=== PATIENT | male | born 1995 | race African-American/Black ===

== ENCOUNTER 2018-01-05 00:55 | Emergency (ER) | payer OTHER ==
[~2018-01-05] VITALS: Ht 180.3 cm; Wt 97.5 kg
[2018-01-05 01:07] VITALS: BP 153/87
--- NOTE | 2018-01-05 01:26 | ED.ADGEN ---
Past History Past Medical History: No Pertinent History Past Surgical History: No Surgical History Alcohol Use: Occasionally Drug Use: None Adult General Chief Complaint Chief Complaint ".. I ve had a cough...".." I a cook at the base.. 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 Pt. coughing up green sputum and reports generalize malaise, subjective fever and chills. No travel or specific ill contacts. Pt. does smoke. No hx of immunosuppression. Pt up to date with vaccinations. Pt. normally healthy. Review of Systems Review of Systems Constitutional: Objective complaints of fever or chills [] Eyes: Denies change in visual acuity, redness, or eye pain [] HENT: Complaints of of nasal congestion and sore throat [] Respiratory: Complaints of cough and wheezing Cardiovascular: No additional information not addressed in HPI [] GI: Denies abdominal pain, nausea, vomiting, bloody stools or diarrhea [] : Denies dysuria or hematuria [] Musculoskeletal: Denies back pain or joint pain [] Integument: Denies rash or skin lesions [] Neurologic: Denies headache, focal weakness or sensory changes [] Endocrine: Denies polyuria or polydipsia [] All other systems were reviewed and found to be within normal limits, except as documented in this note. Family History Family History Noncontributory Current Medications Current Medications Current Medications Medications (Trade) Dose Ordered Sig/Sergio Start Time Stop Time Status Last Admin Dose Admin Albuterol Sulfate (Ventolin Hfa Inhaler) 2 puff 1X ONCE 01/05/18 02:15 01/05/18 02:16 DC 01/05/18 02:01 2 PUFF Azithromycin (Zithromax) 500 mg 1X ONCE 01/05/18 02:15 01/05/18 02:16 DC 01/05/18 02:01 500 MG Prednisone (Prednisone) 50 mg 1X ONCE 01/05/18 02:15 01/05/18 02:16 DC 01/05/18 02:01 50 MG See nursing for home meds Allergies Allergies Allergies Coded Allergies Type Severity Reaction Last Updated Verified No Known Drug Allergies 01/05/18 No Physical Exam Physical Exam Constitutional: Well developed, well nourished, moderately acute distress, non- toxic appearance. [] HENT: Normocephalic, atraumatic, bilateral external ears normal, oropharynx moist, injected pharynx, no oral exudates, nose swollen turbinates and rhinorrhea. Eyes: PERRLA, EOMI, conjunctiva normal, no discharge. [] Neck: Normal range of motion, no tenderness, supple, no stridor. [] Cardiovascular:Heart rate regular rhythm, no murmur [] Lungs & Thorax: Bilateral breath sounds equal apex with scattered wheezes on auscultation [] Abdomen: Bowel sounds normal, soft, no tenderness, no masses, no pulsatile masses. [] Skin: Warm, dry, no erythema, no rash. [] Tattoos Back: No tenderness, no CVA tenderness. [] Extremities: No tenderness, no cyanosis, no clubbing, ROM intact, no edema. [] Neurologic: Alert and oriented X 3, normal motor function, normal sensory function, no focal deficits noted. [] Psychologic: Affect normal, judgement normal, mood normal. [] Current Patient Data Vital Signs Vital Signs Date Time Temp Pulse Resp B/P (MAP) Pulse Ox O2 Delivery O2 Flow Rate FiO2 01/05/18 01:07 98.4 97 16 98 Room Air EKG EKG [] Radiology/Procedures Radiology/Procedures [] Course & Med Decision Making Course & Med Decision Making Pertinent Labs and Imaging studies reviewed. (See chart for details). Patient take Tylenol and ibuprofen as needed for discomfort. Patient to try over -the-counter Benadryl 50 mg up 4 times a day for coughing and drainage. Patient taking Zithromax 250 and prednisone 50 mg day for 5 days. Use MDI 2 puffs 4 times a day. Patient follow-up [place]. Patient return if any concerns. 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 Encouraged patient to stop smoking. Worked to use up to 3 days if needed. No work if running a fever. [] Final Impression Final Impression 1. Upper respiratory infection 2. Bronchitis 3. Tobacco use[] Dragon Disclaimer Dragon Disclaimer This electronic medical record was generated, in whole or in part, using a voice recognition dictation system. UZAIR MCKEON MD Jan 05, 2018 01:26
[2018-01-05] MEDS ORDERED: AZIT250T PO (01:53)
[2018-01-05] MEDS ORDERED: PRED50TA PO (01:53)
[2018-01-05] MEDS: AZITHROMYCIN 250 MG TABLET. PO ONE (02:01)
[2018-01-05] MEDS: ALBUTEROL SULFATE 8GM INHALER. INH ONE (02:01)
[2018-01-05] MEDS: predniSONE 10 MG TABLET PO ONE (02:01)
== END 2018-01-05 02:05 | disposition home or self-care (01) ==
LOC: ER 00:55
DX: J06.9 Acute upper respiratory infection, unspecified (principal); J40 Bronchitis, not specified as acute or chronic; Z72.0 Tobacco use
CPT/HCPCS: 94640; 99283; J0456; J7512; J7613

== ENCOUNTER 2018-08-18 16:14 | Emergency (ER) | payer OTHER ==
[~2018-08-18] VITALS: Ht 180.3 cm; Wt 97.5 kg
[~2018-08-18 16:14] MED LIST: AZIT250T PO; PRED50TA PO
--- NOTE | 2018-08-18 16:46 | PHYS DOC ---
Past History Past Medical History: No Pertinent History Past Surgical History: No Surgical History Alcohol Use: Occasionally Drug Use: None Adult General Chief Complaint Chief Complaint: KNEE INJURY HPI HPI 23-year-old male presents with right knee pain. The patient has had issues with his right knee since a the training in the . He recently had meniscal tear repair surgery at the end of June. He has continued to do physical therapy. He has been cleared to walk without crutches. Of the last couple of days the pain and swelling seems to have increased, especially therapy. He presents today because he has been taking NSAIDs as directed and it is not helping with the pain. He denies fever or chills. He has had no new trauma or falls. Review of Systems Review of Systems Constitutional: Denies fever or chills [] Eyes: Denies change in visual acuity, redness, or eye pain [] HENT: Denies nasal congestion or sore throat [] Respiratory: Denies cough or shortness of breath [] Cardiovascular: No additional information not addressed in HPI [] GI: Denies abdominal pain, nausea, vomiting, bloody stools or diarrhea [] : Denies dysuria or hematuria [] Musculoskeletal: Right knee pain[] Integument: Denies rash or skin lesions [] Neurologic: Denies headache, focal weakness or sensory changes [] Endocrine: Denies polyuria or polydipsia [] All other systems were reviewed and found to be within normal limits, except as documented in this note. Allergies Allergies Allergies Coded Allergies Type Severity Reaction Last Updated Verified No Known Drug Allergies 01/05/18 No Physical Exam Physical Exam Constitutional: Well developed, well nourished, no acute distress, non-toxic appearance. [] HENT: Normocephalic, atraumatic, bilateral external ears normal, oropharynx moist, no oral exudates, nose normal. [] Eyes: PERRLA, EOMI, conjunctiva normal, no discharge. [] Neck: Normal range of motion, no tenderness, supple, no stridor. [] Cardiovascular:Heart rate regular rhythm, no murmur [] Lungs & Thorax: Bilateral breath sounds clear to auscultation [] Abdomen: Bowel sounds normal, soft, no tenderness, no masses, no pulsatile masses. [] Skin: Warm, dry, no erythema, no rash. [] Back: No tenderness, no CVA tenderness. [] Extremities: Tenderness along the medial joint line of the right knee, moderate swelling, no ecchymosis, solid end feel of all ligaments.[] Neurologic: Alert and oriented X 3, normal motor function, normal sensory function, no focal deficits noted. [] Psychologic: Affect normal, judgement normal, mood normal. [] Current Patient Data Vital Signs Vital Signs Date Time Temp Pulse Resp B/P (MAP) Pulse Ox O2 Delivery O2 Flow Rate FiO2 08/18/18 16:24 98.9 89 20 97 Room Air EKG EKG [] Radiology/Procedures Radiology/Procedures [] Impressions: Examination: KNEE RIGHT 3V History: Pain Comparison/Correlation: None Findings: Total 3 images of the right knee were obtained. Joint spaces are normal. No acute fracture or bony destruction. Small joint effusion. No degenerative change. Impression: Small knee joint effusion. Electronically signed by: Dinesh Holt MD (08/18/2018 5:12 PM) [facility] DICTATED AND SIGNED BY: DINESH HOLT MD DATE: 08/18/18 530 CC: KRISH PARSONS DO; THOMAS DAVDI PA-C ~ Course & Med Decision Making Course & Med Decision Making Pertinent Labs and Imaging studies reviewed. (See chart for details) The patient's x-ray is unremarkable except for small joint effusion. It's possible the patient re-tweaked the meniscus. It could also just be reactive swelling due to his physical therapy exercises. I will discharge the patient wi th tramadol and advised that he use compression. He will follow-up with his physicians. He is stable for discharge at this time. [] Dragon Disclaimer Dragon Disclaimer This electronic medical record was generated, in whole or in part, using a voice recognition dictation system. Departure Departure: Impression: Primary Impression: Right knee pain Additional Impression: Joint effusion of knee Disposition: 01 HOME, SELF-CARE Condition: STABLE Referrals: THOMAS DAVID PA-C (PCP) Patient Instructions: Knee Pain, [id number] Scripts Tramadol Hcl (TRAMADOL HCL) 50 Mg Tablet 50 MG PO PRN Q6HRS PRN for PAIN, #14 TAB Prov: KRISH PARSONS DO 08/18/18 Problem Qualifiers Primary Impression: Right knee pain Chronicity: acute Qualified Codes: M25.561 - Pain in right knee Additional Impression: Joint effusion of knee Laterality: right Qualified Codes: M25.461 - Effusion, right knee KRISH PARSONS DO Aug 18, 2018 16:46
--- NOTE | 2018-08-18 17:15 | RAD ---
Examination: KNEE RIGHT 3V History: Pain Comparison/Correlation: None Findings: Total 3 images of the right knee were obtained. Joint spaces are normal. No acute fracture or bony destruction. Small joint effusion. No degenerative change. Impression: Small knee joint effusion. Electronically signed by: Carlton Marroquin MD (08/18/2018 5:12 PM) [facility]
[2018-08-18] MEDS ORDERED: TRAM50TA PO (17:23)
[2018-08-18 17:33] VITALS: BP 134/56
== END 2018-08-18 17:33 | disposition home or self-care (01) ==
LOC: ER 16:14
DX: M25.461 Effusion, right knee (principal); M25.561 Pain in right knee
CPT/HCPCS: 73562; 99284

== ENCOUNTER 2019-05-14 23:58 | Emergency (ER) | payer OTHER ==
[~2019-05-14] VITALS: Ht 180.3 cm; Wt 98.0 kg
[~2019-05-14 23:58] MED LIST changes: +TRAM50TA PO
--- NOTE | 2019-05-15 00:05 | PHYS DOC ---
Past History Past Medical History: No Pertinent History, Migraines Past Surgical History: No Surgical History Past Surgical History Knee Rt Alcohol Use: Occasionally Drug Use: None Adult General Chief Complaint Chief Complaint: "... I ve had a head ache... that been constant the last two days.. my eyes rivera.. and ache.. 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 Pt. presents with above hx and complaints of headache x 2 days. No overseas assignment for 3 years-last time was [place]. No recent travel out of state travel. No history of trauma. Up-to-date with vaccinations including flu vaccination. Patient does have a history of migraine headaches as a teenager. Patient states in the past taking Tylenol relieved his headaches. Pt. follows with Kortney Sheikh for primary at [place]. No history of trauma. Review of Systems Review of Systems Constitutional: Denies fever or chills [] Eyes: Complains of burning eyes HENT: Complains of nasal congestion congestion and clear rhinorrhea] Respiratory: Denies cough or shortness of breath [] Cardiovascular: No additional information not addressed in HPI [] GI: Denies abdominal pain, nausea, vomiting, bloody stools or diarrhea [] : Denies dysuria or hematuria [] Musculoskeletal: Complaints of generalized myalgia and arthralgia and malaise.] Integument: Denies rash or skin lesions [] Neurologic: Complaints of generalized headache,. Denies focal weakness or sensory changes [] Endocrine: Denies polyuria or polydipsia [] All other systems were reviewed and found to be within normal limits, except as documented in this note. Family History Family History Noncontributory Current Medications Current Medications See nursing for home meds Allergies Allergies Allergies Coded Allergies Type Severity Reaction Last Updated Verified No Known Drug Allergies 01/05/18 No Physical Exam Physical Exam Constitutional: Well developed, well nourished, mild distress, non-toxic appearance. [] HENT: Normocephalic, atraumatic, bilateral external ears normal, oropharynx moist, no oral exudates, nose mild turbinate edema and clear rhinorrhea. Eyes: PERRLA, EOMI, conjunctiva normal, no discharge. [] Does have some photophobia Neck: Normal range of motion, no tenderness, supple, no stridor. [] Cardiovascular:Heart rate regular rhythm, no murmur [] Lungs & Thorax: Bilateral breath sounds clear to auscultation [] Abdomen: Bowel sounds normal, soft, no tenderness, no masses, no pulsatile masses. [] Skin: Warm, dry, no erythema, no rash. [] Back: No tenderness, no CVA tenderness. [] Extremities: No tenderness, no cyanosis, no clubbing, ROM intact, no edema. [] Right knee scar. Neurologic: Alert and oriented X 3, normal motor function, normal sensory function, no focal deficits noted. []DTRs +2 patella and brachial. It is ambulatory without problems. No drift. Cook [place] equal. Right-hand dominant. Psychologic: Affect anxious, judgement normal, mood normal. [] EKG EKG [] Radiology/Procedures Radiology/[place]ced[place] [][place] [address] IMAGING REPORT Signed PATIENT: TANO LEWISACCOUNT: [id number] : 1995 LOCATION: ER AGE: 24 SEX: M EXAM STATUS: REG ER ORD. PHYSICIAN: UZAIR MCKEON MD REASON: Head ache x 2 days - no relief with over counter meds PROCEDURE: CT HEAD WO CONTRAST CT head without contrast: Reason for examination: Headache for 2 days. No relief with [id number] medications. Axial images were obtained through the brain. No contrast was administered. Exposure: One or more of the following individualized dose reduction techniques were utilized for this examination: 1. Automated exposure control 2. Adjustment of the mA and/or kV according to patient size 3. Use of iterative reconstruction technique. Ventricular systems are symmetric and not dilated. No midline shift is seen. There is no evidence of intracranial hemorrhage, infarct, mass or edema. No abnormalities are seen at the orbits. The paranasal sinuses and mastoid air cells are clear. No acute abnormality seen in the skull. IMPRESSION: No acute intracranial abnormality evident. Electronically signed by: Arlene Schmitz MD (05/15/2019 12:54 AM) [id number] DICTATED AND SIGNED BY: ARLENE SCHMITZ MD DATE: 05/15/19 0054 CC: UZAIR MCKEON MD; THOMAS SHEIKH PA-C ~ Course & Med Decision Making Course & Med Decision Making Pertinent Labs and Imaging studies reviewed. (See chart for details) Risk and benefits of spinal tap discussed with patient. Patient declines spinal tap at this time. Patient also declined flu swab. Patient take Tylenol or ibuprofen as needed for discomfort. Patient follow-up primary care. Patient returns if any concerns. Impression: 1. Viral Cephalgia 2. Headache 3. Viral Syndrome [] Dragon Disclaimer Dragon Disclaimer This electronic medical record was generated, in whole or in part, using a voice recognition dictation system. Departure Departure: Disposition: 01 HOME/RESIDENCE PRIOR TO ADM Condition: STABLE Referrals: THOMAS SHEIKH PA-C (PCP) Scripts Ibuprofen (IBUPROFEN) 400 Mg Tablet 600 MG PO qidp for pain or fever, #120 TAB Prov: UZAIR MCKEON MD 05/15/19 Acetaminophen (ACETAMINOPHEN) 500 Mg Tablet 1000 MG PO qjdp for pain or fever, #120 TAB Prov: UZAIR MCKEON MD 05/15/19 Dragon Disclaimer This chart was dictated in whole or in part using Voice Recognition software in a busy, high-work load, and often noisy Emergency Department environment. It may contain unintended and wholly unrecognized errors or omissions. Dragon Disclaimer This chart was dictated in whole or in part using Voice Recognition software in a busy, high-work load, and often noisy Emergency Department environment. It may contain unintended and wholly unrecognized errors or omissions. UZAIR MCKEON MD May 15, 2019 00:05
[2019-05-15] MEDS ORDERED: IV RINGERS SOLUTION,LACTATED 1,000 ML IV SCH (00:26)
--- NOTE | 2019-05-15 00:58 | RAD ---
CT head without contrast: Reason for examination: Headache for 2 days. No relief with [id number] medications. Axial images were obtained through the brain. No contrast was administered. Exposure: One or more of the following individualized dose reduction techniques were utilized for this examination: 1. Automated exposure control 2. Adjustment of the mA and/or kV according to patient size 3. Use of iterative reconstruction technique. Ventricular systems are symmetric and not dilated. No midline shift is seen. There is no evidence of intracranial hemorrhage, infarct, mass or edema. No abnormalities are seen at the orbits. The paranasal sinuses and mastoid air cells are clear. No acute abnormality seen in the skull. IMPRESSION: No acute intracranial abnormality evident. Electronically signed by: Isabella Le MD (05/15/2019 12:54 AM) [id number]
[2019-05-15 01:11] LABS: BASO % 0 % (0-3); EOS # 0.2 x10^3/uL (0.0-0.7); EOS % 2 % (0-3); HEMATOCRIT 47.3 % (39.0-53.0); HEMOGLOBIN 15.8 g/dL (13.0-17.5); LYMPH # 2.2 x10^3/uL (1.0-4.8); LYMPH % 23 % (24-48); MEAN CORPUSCULAR HEMOGLOBIN 30 pg (25-35); MEAN CORPUSCULAR HGB CONC 33 g/dL (31-37); MEAN CORPUSCULAR VOLUME 91 fL (79-100); MONO # 0.9 x10^3/uL (0.0-1.1); MONO % 9 % (0-9); NEUT # 6.6 x10^3uL (1.8-7.7); NEUT % 66 % (31-73); PLATELET COUNT 244 x10^3/uL (140-400); RED CELL DISTRIBUTION WIDTH 13.5 % (11.5-14.5)
[2019-05-15 01:15] LABS: CALCIUM 9.2 mg/dL (8.5-10.1); CREATININE 1.2 mg/dL (0.7-1.3); GFR 90.8; POTASSIUM 3.7 mmol/L (3.5-5.1)
[2019-05-15 01:20] LABS: DIRECT BILIRUBIN 0.1 mg/dL (0.0-0.2); MAGNESIUM 2.1 mg/dL (1.8-2.4); TOTAL BILIRUBIN 0.3 mg/dL (0.2-1.0)
[2019-05-15 01:21] LABS: BACTERIA,URINE 0 /HPF (0-FEW); BILIRUBIN,URINE NEG (NEG); CLARITY,URINE CLEAR; COLOR,URINE YELLOW; GLUCOSE,URINE NEG (NEG); NITRITE,URINE NEG (NEG); RBC,URINE 0 /HPF (0-2); SQUAMOUS EPITHELIAL CELL,UR OCC /LPF; UROBILINOGEN,URINE 0.2 mg/dL (0.2 mg/dL); WBC,URINE OCC /HPF (0-4)
[2019-05-15 02:06] LABS: SEDIMENTATION RATE 6 (0-15)
[2019-05-15] MEDS ORDERED: KETOROLAC 60 MG/2 ML VIAL. IM ONE (02:30)
[2019-05-15] MEDS ORDERED: KETOROLAC 30 MG/ML VIAL. IVP ONE (02:45)
[2019-05-15] MEDS ORDERED: KETOROLAC 30 MG/ML VIAL. ONE (02:46)
[2019-05-15] MEDS ORDERED: IBUP400T18 PO (02:51)
[2019-05-15] MEDS ORDERED: ACET500T68 PO (02:51)
[2019-05-15 02:52] VITALS: BP 146/82
== END 2019-05-15 02:56 | disposition home or self-care (01) ==
LOC: ER 23:58
DX: G43.909 Migraine, unspecified, not intractable, without status migrainosus (principal); B34.9 Viral infection, unspecified
CPT/HCPCS: 36415; 70450; 80048; 80076; 81001; 82550; 83735; 84443; 84484; 85025; 85610; 85651; 85730; 96374; J1885; J7120; 99284-25